=== PATIENT | female | born 1990 | race Native Hawaiian/Other Pacific Islander ===

== ENCOUNTER 2017-07-21 15:45 | Emergency (ER) | payer OTHER ==
[2017-07-21 16:28] VITALS: RESP 18; TEMP 97.6; O2SAT 98
--- NOTE | 2017-07-21 17:00 | ED PDOC ---
Arrival/HPI - General Chief Complaint: Female Genitourinary Time Seen by Provider: 07/21/17 15:49 Historian: Patient - History of Present Illness Narrative History of Present Illness (Text): 07/21/17 16:57 27 yo F who is 5 wks based on her LMP, reports 1 day history of small amount of vaginal bleeding, reports had dark brown vaginal discharge 5 days prior, with no abdominal pain. Reports doing a HPT several weeks ago, which was (+). Otherwise: (-) N/V, (-) fever, (-) urinary symptoms, (-) prior salpingitis , (-) prior ectopic . Has (-) care and (-) prior OB ultrasound. 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 : Mary Past Medical History - Provider Review Nursing Documentation Reviewed: Yes - Infectious Disease Hx of Infectious Diseases: None - Psychiatric Hx Substance Use: No - Anesthesia Hx Anesthesia: No Family/Social History - Physician Review Nursing Documentation Reviewed: Yes Family/Social History: No Known Family HX Smoking Status: Never Smoked Hx Alcohol Use: No Hx Substance Use: No Allergies/Home Meds Allergies/Adverse Reactions: Allergies No Known Allergies Allergy (Verified 07/21/17 15:57) Review of Systems - Review of Systems Constitutional: absent: Fatigue, Weight Change, Fevers Respiratory: absent: SOB, Cough, Sputum Cardiovascular: absent: Chest Pain, Palpitations, Edema Gastrointestinal: absent: Abdominal Pain, Stool Changes, Vomiting, Appetite Changes Genitourinary Female: Vaginal Bleeding. absent: Dysuria, Frequency, Hematuria Musculoskeletal: absent: Arthralgias, Back Pain, Neck Pain Skin: absent: Rash, Pruritis, Skin Lesions Physical Exam - Physical Exam Narrative Physical Exam (Text): 07/21/17 17:00 GENERAL APPEARANCE: Patient is awake, alert, oriented x 3, in no acute distress. SKIN: Warm, dry; (-) cyanosis. EYES: (-) conjunctival pallor, (-) scleral icterus. ENMT: Mucous membranes moist. NECK: (-) tenderness, (-) stiffness, (-) lymphadenopathy. CHEST AND RESPIRATORY: (-) rales, (-) rhonchi, (-) wheezes; breath sounds equal bilaterally. HEART AND CARDIOVASCULAR: (-) irregularity; (-) murmur, (-) gallop. ABDOMEN AND GI: (-) distention. Bowel sounds active; (-) tenderness, (-) guarding, (-) rebound, (-) palpable masses, (-) CVA tenderness. EXTREMITIES: (-) deformity, (-) edema, (+) distal pulses. NEURO AND PSYCH: Mental status as above; (-) focal findings. Vital Signs Temp Pulse Resp BP Pulse Ox 07/21/17 19:59 100 H 18 116/80 98 07/21/17 16:00 97.6 F 97 H 18 116/84 98 Medical Decision Making ED Course and Treatment: 07/21/17 17:00 27 yo F who is 5 wks , reports 1 day history of small amount of vaginal bleeding, reports had dark brown vaginal discharge 5 days prior, with no abdominal pain. Plan: -- Labs -- Urinalysis -- Reassess and disposition -- TV US Labs reviewed : beta quant 100, H/H is normal, blood type O+. US shows no IUP or ectopic. On reevaluation, patient reports no abdominal pain or increase in vaginal bleeding at this time. On exam, patient is sitting comfortably in bed in no acute distress. Abdomen remained soft with no tenderness. Diagnostic results discussed with the patient in great detail. Patient advised to return to the emergency room after 2 days for repeat beta Quant. Patient states she fully agrees with and understands discharge instructions. States that she agrees with the plan and disposition. Verbalized and repeated discharge instructions and plan. I have given the patient opportunity to ask any additional questions. - Lab Interpretations Lab Results: 07/21/17 16:22 07/21/17 16:22 Lab Results 07/21/17 17:00: Blood Type B POSITIVE, Antibody Screen Negative, BBK History Checked No verified bt 07/21/17 17:00: Urine Color Yellow, Urine Appearance Clear, Urine pH 6.0, Ur Specific [place] 1.020, Urine Protein Negative, Urine Glucose (UA) Negative, Urine Ketones Trace H, Urine Blood Large H, Urine Nitrate Negative, Urine Bilirubin Negative, Urine Urobilinogen 0.2, Ur Leukocyte Esterase Negative, Urine RBC 20 - 25, Urine WBC 1 - 3, Ur Epithelial Cells 3 - 4 07/21/17 16:22: Beta HCG, Quant 100.34 H 07/21/17 16:22: Sodium 138, Potassium 3.9, Chloride 104, Carbon Dioxide 24, Anion Gap 14, BUN 12, Creatinine 0.7, Est GFR ( Amer) > 60, Est GFR (Non- Af Amer) > 60, Random Glucose 101, Calcium 10.0, Total Bilirubin 1.3, AST 27, ALT 26, Alkaline Phosphatase 51, Total Protein 8.1, Albumin 4.5, Globulin 3.5, Albumin/Globulin Ratio 1.3 07/21/17 16:22: WBC 7.1, RBC 4.48, Hgb 13.9, Hct 40.9, MCV 91.3, MCH 31.0, MCHC 34.0, RDW 12.2, Plt Count 229, MPV 10.4, Gran % 66.4, Lymph % (Auto) 25.9, [place] % (Auto) 6.0, Eos % (Auto) 1.3 L, Baso % (Auto) 0.4, Gran # 4.74, Lymph # 1.9, [place] # 0.4, Eos # 0.1, Baso # 0.03 I have reviewed the lab results: Yes - RAD Interpretation Narrative RAD Interpretations (Text): 07/21/17 19:35 US TV : FINDINGS: Uterus: Uterus measures approximately 7.4 x 4.3 x 6 cm. Cervix measures approximately 2 cm in length. There is fluid in cervical canal. Endometrium is thick, 27.4 mm in width. Endometrium is heterogeneous. There is no endometrial flow on color imaging. Ovaries: Left ovary measures approximately 3 x 2 x 2.6 cm. Right ovary measures approximately 3 x 1 x 2.8 cm. There are multiple small follicles. There is intraovarian blood flow. Free fluid: There is a small amount of free fluid in the cul-de-sac. There is minimal fluid in the left adnexa IMPRESSION: No intrauterine or ectopic gestation identified; thickened endometrium ; small amount of fluid in the cervical canal Correlation with serial beta hCG levels advised. Dictated and Authenticated by: Reina Eric MD 07/21/2017 7:31 PM Eastern Time ([place] & [place]) Radiology Orders: 07/21/17 16:22 OB TRANSVAGINAL [US] Stat - PA / BUSINESS INTELLIGENCE DIRECTOR / Resident Statement /DO has reviewed & agrees with the documentation as recorded. Disposition/Present on Arrival - Present on Arrival Any Indicators Present on Arrival: No History of DVT/PE: No History of Uncontrolled Diabetes: No Urinary Catheter: No History of Decub. Ulcer: No History Surgical Site Infection Following: None - Disposition Have Diagnosis and Disposition been Completed?: Yes Diagnosis: , Vagina bleeding Disposition: HOME/ ROUTINE Disposition Time: 19:15 Patient Plan: Discharge Patient Problems: Current Active Problems Problem Status Onset Acute Vagina bleeding Acute Condition: STABLE Discharge Instructions (ExitCare): Threatened Miscarriage (ED) Print Language: GE[place] Additional Instructions: Thank you for letting us take care of you today. You were treated for , vaginal bleeding, consider threatened miscarriage. The emergency medical care you received today was directed at your acute symptoms. Return to the Emergency Department after 2 days for repeat beta quant. Thank you for allowing the [facility] team to be part of your care today. Referrals: Silvia Bob, [Primary Care Provider] - Follow up with primary Forms: [facility] (Citizen Of [place])
[2017-07-21 17:14] LABS: BASO # 0.03 K/mm3 (0.0-2.0); BASO % 0.4 % (0.0-3.0); EOS # 0.1 (0.0-0.7); EOS % 1.3 % (1.5-5.0); GRAN # 4.74 (1.4-6.5); GRAN % 66.4 % (50.0-68.0); HEMOGLOBIN 13.9 g/dL (12.0-16.0); LYMPH # 1.9 (1.2-3.4); LYMPH % 25.9 % (22.0-35.0); MEAN CELL VOLUME 91.3 fl (80.0-105.0); MEAN PLATELET VOLUME 10.4 fl (7.0-11.0); MONO # 0.4 (0.1-0.6); RBC 4.48 10^6/uL (3.5-6.1); RED CELL DISTRIBUTION WIDTH 12.2 % (11.5-14.5); WHITE BLOOD COUNT 7.1 10^3/ul (4.5-11.0)
[2017-07-21 17:14] LABS: URINE BILIRUBIN NEGATIVE (NEGATIVE); URINE BLOOD LARGE (NEGATIVE); URINE GLUCOSE (UA) NEGATIVE (NEGATIVE); URINE LEUKOCYTE ESTERASE NEGATIVE Leu/uL (NEGATIVE); URINE NITRATE NEGATIVE (NEGATIVE); URINE PROTEIN NEGATIVE mg/dL (<30 mg/dL); URINE UROBILINOGEN 0.2 E.U./dL (<1 E.U./dL)
[2017-07-21 17:15] LABS: URINE APPEARANCE CLEAR (CLEAR); URINE COLOR YELLOW (YELLOW)
[2017-07-21 17:17] LABS: URINE RBC 20 - 25 /hpf (0-2)
[2017-07-21 17:28] LABS: ALB/GLOB RATIO 1.3 (1.1-1.8); ALBUMIN 4.5 g/dL (3.0-4.8); ALT/SGPT 26 U/L (7-56); AST/SGOT 27 U/L (14-36); BLOOD UREA NITROGEN 12 mg/dL (7-21); GFR AFRICAN-AMERICAN > 60; GFR NON-AFRICAN AMERICAN > 60
--- NOTE | 2017-07-21 19:32 | US ---
EXAM: US , Transvaginal EXAM DATE/TIME: 07/21/2017 4:22 PM CLINICAL HISTORY: 27 years old, female; Signs and symptoms; Lmp or gestational age (in weeks): 06/14/2017; Other: Vag bleed; ; Additional info: 5 wks , vag bleed; beta hCG 100.34 TECHNIQUE: Real-time transvaginal obstetrical ultrasound of the maternal pelvis and a first trimester with image documentation. Transvaginal imaging was used for better evaluation of the fetus and adnexa. COMPARISON: There are no prior studies for comparison. FINDINGS: Uterus: Uterus measures approximately 7.4 x 4.3 x 6 cm. Cervix measures approximately 2 cm in length. There is fluid in cervical canal. Endometrium is thick, 27.4 mm in width. Endometrium is heterogeneous. There is no endometrial flow on color imaging. Ovaries: Left ovary measures approximately 3 x 2 x 2.6 cm. Right ovary measures approximately 3 x 1 x 2.8 cm. There are multiple small follicles. There is intraovarian blood flow. Free fluid: There is a small amount of free fluid in the cul-de-sac. There is minimal fluid in the left adnexa IMPRESSION: No intrauterine or ectopic gestation identified; thickened endometrium ; small amount of fluid in the cervical canal Correlation with serial beta hCG levels advised
[2017-07-21 20:00] VITALS: BP 116/80; PULSE 100
== END 2017-07-21 20:00 | disposition home or self-care (01) ==
LOC: ED 15:45
DX: O46.91 Antepartum hemorrhage, unspecified, first trimester (principal); Z3A.01 Less than 8 weeks gestation of pregnancy